=== PATIENT | female | born 1960 | race Caucasian/White ===

== ENCOUNTER 2018-09-17 21:59 | Emergency (ER) | payer MEDICAID, OTHER ==
[~2018-09-17] VITALS: Ht 165.1 cm; Wt 86.2 kg
[~2018-09-17 21:59] MED LIST: CIPROFLOXACIN500 M2 ORAL; NKM
[2018-09-17 22:30] VITALS: BP 105/79
--- NOTE | 2018-09-17 22:30 | NUR ---
ER Nurse Note: Pt came from home c/o skin abscess on lower medial abdomen. Pt states she went to [place], noticed a rash on her abdomen on 09/11. Pt stated her abscess grew since Monday. Skin intact, white center. Abscess slightly raised, redness and pinkness around white center. Pain at 10/10. Pt a&ox4, VSS, no signs of distress. [facility] pt side[facility]
--- NOTE | 2018-09-17 22:35 | Emergency Room Report ---
History of Present Illness General Chief Complaint: Skin Rash/Abscess Source: Patient Present Illness HPI Patient presents with reports of infection to the mid abdominal region reports that she just flew in from [place] Has noticed the area getting more red and swollen over the past several days However initially noticed the area becoming infected about 8 days ago Denies any fevers denies any chest pain or shortness of breath denies any vomiting or diarrhea Patient verbalizes significant discomfort to the area Pain is worse with touch patient however has been able to have appropriate bowel movements Denies any discharge from the area denies any other previous trauma Allergies: Coded Allergies: No Known Allergies (Unverified , 09/17/18) Patient History Past Medical History: see triage record Pertinent Family History: none Last Menstrual Period: no Now: No Reviewed Nursing Documentation: PMH: Agreed; PSxH: Agreed Nursing Documentation-PMH Past Medical History: No Stated History Hx Gastrointestinal Problems: Yes - bypass 1 year ago Review of Systems All Other Systems: negative except mentioned in HPI Physical Exam Vital Signs Date Time Temp Pulse Resp B/P (MAP) Pulse Ox O2 Delivery O2 Flow Rate FiO2 09/17/18 22:11 98.1 93 16 105/79 95 Room Air Sp02 EP Interpretation: reviewed, normal General Appearance: no apparent distress Head: normocephalic, atraumatic Eyes: bilateral eye PERRL, bilateral eye EOMI ENT: hearing grossly normal, normal pharynx, TMs + canals normal, uvula midline Neck: full range of motion, supple, no meningismus, no bony tend Respiratory: lungs clear, normal breath sounds, no rhonchi, no respiratory distress, no retraction, no accessory muscle use Cardiovascular #1: normal peripheral pulses, regular rate, rhythm, no edema, no gallop, no JVD, no murmur Gastrointestinal: normal bowel sounds, non tender, soft, no mass, no organomegaly, non-distended, no guarding, no hernia, no pulsatile mass, no rebound Genitourinary: no CVA tenderness Musculoskeletal: normal inspection Neurologic: oriented x3, responsive, grease maker head III-XII nml as tested, motor strength/ tone normal, sensory intact Psychiatric: mood/affect normal Skin: other - Approximately 1 cm x 1 cm fluctuant area several centimeters lateral and 1 cm below the umbilical region, there is surrounding erythema around that, no obvious connection with the umbilical area Lymphatic: normal inspection, no adenopathy Procedures Incision and Drainage Incision and Drainage : Consent: Verbal Site: Mid abdomen Blade Size: 11 I & D Procedure: betadine prep, sterile drapes applied, sterile dressing applied, gauze wick placed Wound Location: abdomen Irrigated w/ Saline (ccs): 200 Anesthesia: Lidocaine w/ Epi Volume Anesthetic (ccs): 4 Patient Tolerated: Well Complications: None Progress After appropriate cleansing and dressing of the area, approximately half centimeter incision was made copious amounts of foul-smelling pus, discharge from the area Further irrigation and cleansing of the area was performed, packing was also placed given the amount of pus that was removed. Patient provided with initial antibiotics here Medical Decision Making Diagnostic Impression: Primary Impression: Abscess Additional Impression: Encounter for incision and drainage procedure ER Course Please refer to the note for the specifics of the incision and drainage There was a large amounts of copious foul-smelling pus that was removed Patient remains hemodynamically stable area had packing and dressing applied and patient requires close follow-up Patient reports that she has follow-up with her primary specialist was also a GI specialist who performed her gastric bypass on Monday Last Vital Signs Date Time Temp Pulse Resp B/P (MAP) Pulse Ox O2 Delivery O2 Flow Rate FiO2 09/17/18 22:11 98.1 93 16 105/79 95 Room Air Status: improved Disposition: HOME, SELF-CARE Condition: Improved Scripts Hydrocodone Bit/Acetaminophen 5-325* (NORCO 5-325*) 1 Each Tablet 1 TAB ORAL Q6H PRN for For Pain, #15 TAB 0 Refills Prov: Ashly Justice DO 09/17/18 Ibuprofen* (MOTRIN*) 600 Mg Tablet 600 MG ORAL THREE TIMES A DAY, #20 TAB 0 Refills Prov: Ashly Justice DO 09/17/18 Cephalexin* (KEFLEX*) 500 Mg Capsule 500 MG ORAL EVERY 6 HOURS, #40 CAP Prov: Ashly Justice DO 09/17/18 Trimethoprim/Sulfamethoxazole 160/800* (BACTRIM DS TABLET*) 1 Each Tablet 1 TAB ORAL Q12H, #20 TAB 0 Refills Prov: Ashly Justice DO 09/17/18 Additional Instructions: Patient is provided with the discharge instructions notified to follow up with primary doctor in the next 2-3 days otherwise return to the er with any worsening symptoms. Please note that this report is being documented using DRAGON technology. This can lead to erroneous entry secondary to incorrect interpretation by the dictating instrument. Ashly Justice DO Sep 17, 2018 22:35
[2018-09-17] MEDS ORDERED: Lidocaine 1% 10mg/ml/Epi 0.005mg/ml 30ml vial INJ ONE (22:45)
[2018-09-17] MEDS ORDERED: Bactrim-DS 1 tab ORAL ONE (22:45)
[2018-09-17] MEDS ORDERED: Cephalexin 500mg cap ORAL ONE (22:45)
[2018-09-17 23:00] VITALS: BP 110/76
--- NOTE | 2018-09-17 23:00 | NUR ---
ER Nurse Note: Pt seen, treated, medically treated by ERMD. Discharge instructions and prescriptions given with repeat verbalization by pt. Instructed pt to follow up with primary care physcian within one week. Pt a&ox4, VSS, no signs of distress. ID band removed. All orders completed per ERMD orders. Pt left with all belongings with steady gait via own transportation.
[2018-09-17] MEDS ORDERED: CEPHALEXIN500 MG ORAL (23:06)
[2018-09-17] MEDS ORDERED: IBUPROFEN600 MG ORAL (23:06)
[2018-09-17] MEDS ORDERED: BACTRIM DS TAB1 EAC1 ORAL (23:06)
[2018-09-17] MEDS ORDERED: NORCO 5-325 TA1 EACH ORAL (23:06)
[2018-09-17] MEDS ORDERED: Bacitracin Oint UD TOPIC ONE ×2 (23:09→23:15)
[2018-09-17] MEDS ORDERED: HYDROcodone/Acetamin 10/325 tab ORAL ONE (23:15)
== END 2018-09-17 23:00 | disposition home or self-care (01) ==
LOC: EMR 22:30
DX: L02.211 Cutaneous abscess of abdominal wall (principal)
CPT/HCPCS: 10060; 96374; 99284; Z7502